=== PATIENT | female | born 1975 | race Caucasian/White ===

== ENCOUNTER 2018-09-27 20:06 | Emergency (ER) | payer OTHER ==
[~2018-09-27] VITALS: Ht 162.6 cm; Wt 56.7 kg
[2018-09-27 21:36] VITALS: BP 136/86
== END 2018-09-27 21:24 | disposition home or self-care (01) ==
LOC: ED 21:18
DX: S92.411A Displaced fracture of proximal phalanx of right great toe, initial encounter for closed fracture (principal); W22.8XXA Striking against or struck by other objects, initial encounter; Y93.89 Activity, other specified; Y92.009 Unspecified place in unspecified non-institutional (private) residence as the place of occurrence of the external cause; Y99.8 Other external cause status
CPT/HCPCS: 28515; 99284